=== PATIENT | female | born 1990 | race Caucasian/White ===

== ENCOUNTER 2020-11-15 17:43 | Emergency (ER) | payer BC, SELFPAY ==
[2020-11-15] MEDS ORDERED: NA CHLORIDE 0.9% 1,000 ML ONE (19:02)
[2020-11-15] MEDS ORDERED: FAMOTIDINE 20 MG/2 ML VIAL IV ONE (19:02)
[2020-11-15] MEDS ORDERED: DIPHENHYDRAMINE 50 MG/ML VIAL ONE (19:02)
[2020-11-15] MEDS ORDERED: dexAMETHasone 10 MG/ML VIAL ONE (19:02)
[2020-11-15] MEDS ORDERED: ACETAMINOPHEN 500 MG TAB ONE (19:02)
[2020-11-15 19:08] LABS: Potassium 3.7 mmol/L (3.5-5.1)
[2020-11-15 20:02] LABS: Urine Blood NEGATIVE (NEG); Urine Glucose NEGATIVE (NEG); Urine Protein 2+ (NEG); Urine Specific Gravity 1.025 (1.005-1.030)
--- NOTE | 2020-11-15 20:17 | RAD REPORT ---
EXAM DESCRIPTION: CT - Chest For Pe Angio - 11/15/2020 8:01 pm CLINICAL HISTORY: sob, elevated d-dimer Patient indicates cough and shortness of breath, exposure to COVID positive person, patient COVID iveth t outcome is pending COMPARISON: No comparisons TECHNIQUE: Dynamically enhanced 3 mm thick images of the chest were obtained during administration o f approximately 150mL Isovue 370 IV contrast. Coronal and oblique MIP reconstruction images were gene rated and reviewed. Exam utilizes a protocol to evaluate the pulmonary arterial tree. All CT scans are performed using dose optimization technique as appropriate and may include automated exposure control or mA/KV adjustment according to patient size. FINDINGS: Pulmonary artery contrast density was not optimal but is considered diagnostic. Far periph eral branch assessment is more limited due to respiratory motion. No pulmonary emboli are identifiabl e. The aorta as imaged shows no acute or suspicious finding. No pericardial thickening or effusion. Scattered ground-glass opacities are present in the right upper lobe. Peripheral airspace opacificati on is present in each lower lobe near the base and superior segment of the right lower lobe. No pleur al effusion or pleural thickening. Subcarinal and perihilar lymphadenopathy is present probably reactive. No chest wall masses or abnorm al axillary lymphadenopathy. IMPRESSION: No pulmonary emboli identified. Bilateral peripheral airspace opacification typical for viral infiltrate. In the current clinical env ironment and based on patient exposure history, bilateral COVID-19 pneumonia would be a primary consi deration.
--- NOTE | 2020-11-15 20:21 | EDPHYS ---
Physician Documentation [facility] Name: Naila Salmon Age: 30 yrs Sex: Female : 1990 Arrival Date: 11/15/2020 Time: 17:43 Bed 20 Private MD: ED Physician Emir Baer HPI: 11/15 17:52 This 30 yrs old Female presents to ER via Ambulatory with complaints of jmm Allergic Reaction, Shortness Of Breath. 17:52 The patient presents with rash. Onset: The symptoms/episode began/occurred gradually, jmm today. Associated signs and symptoms: Pertinent positives: shortness of breath. Possible causes: illness. This is a 30 year old female with a history of epilepsy that presents to the ED with complaints of generalized rash, SOB. Patient developed URI symptoms approx 1 week ago. Patient is awaiting COVID 19 results. . 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 - Social history:: Smoking status: Patient denies any tobacco usage or history of. ROS: 17:52 Cardiovascular: Negative for chest pain, palpitations, and edema. jmm 17:52 Constitutional: Positive for body aches, chills, fever. 17:52 Respiratory: Positive for shortness of breath. 17:52 All other systems are negative. Exam: 17:52 Constitutional: This is a well developed, well nourished patient who is awake, alert, jmm and in no acute distress. Head/Face: atraumatic. Eyes: EOMI, no conjunctival erythema appreciated ENT: Moist Mucus Membranes Neck: Trachea midline, Supple Chest/axilla: Normal chest wall appearance and motion. 17:52 Back: Normal ROM Skin: General appearance color normal MS/ Extremity: Moves all extremities, no obvious deformities appreciated, no edema noted to the lower extremities Neuro: Awake and alert, normal gait Psych: Behavior is normal, Mood is normal, Patient is cooperative and pleasant 17:52 Cardiovascular: Rate: tachycardic, Rhythm: regular. Vital Signs: 18:00 BP 138 / 92; Pulse 139; Resp 20 S; Temp 100.4(O); Pulse Ox 99% on R/A; Weight 133.81 iw kg; Height 5 ft. 6 in. (167.64 cm); 18:55 BP 96 / 77; Pulse 110; Resp 20 S; Pulse Ox 97% on R/A; jd3 18:00 Body Mass Index 47.61 (133.81 kg, 167.64 cm) iw MDM: 17:52 Patient medically screened. [facility] 20:19 Data reviewed: nurses notes, EMS record. Counseling: I had a detailed discussion with [facility] the patient and/or guardian regarding: the historical points, exam findings, and any diagnostic results supporting the discharge/admit diagnosis, lab results, radiology results, the need for outpatient follow up, to return to the emergency department if symptoms worsen or persist or if there are any questions or concerns that arise at home. ED course: Patient is alert and non toxic in appearance in the ED. CTA negative. Will treat for covid pneumonia. Patient advised to follow up with pcp and otherwise given strict return precautions. Patient understood and agrees with the plan of care. . 11/15 18:05 Order name: BMP; Complete Time: 19:09 [facility] 11/15 18:05 Order name: D-Dimer; Complete Time: 19:08 [facility] 11/15 19:52 Order name: Urine Dipstick--Ancillary (enter results); Complete Time: 20:11 [facility] 11/15 19:52 Order name: Urine --Ancillary (enter results); Complete Time: 20:11 [facility] 11/15 18:05 Order name: Saline Lock; Complete Time: 18:57 [facility] 11/15 18:05 Order name: Urine Dipstick-Ancillary (obtain specimen); Complete Time: 19:50 [facility] 11/15 19:09 Order name: CT Chest For PE Angio; Complete Time: 20:29 [facility] 11/15 18:05 Order name: Urine Test (obtain specimen); Complete Time: 19:50 [facility] Administered Medications: 18:56 Drug: Tylenol 1000 mg Route: PO; jd3 18:56 Drug: NS 0.9% 1000 ml Route: IV; Rate: 1 bolus; Site: right antecubital; jd3 18:56 Drug: Pepcid 20 mg Route: IVP; Site: right antecubital; jd3 18:56 Drug: Decadron - Dexamethasone 10 mg Route: IVP; Site: right antecubital; jd3 18:57 Drug: Benadryl 25 mg Route: IVP; Site: right antecubital; jd3 Disposition: 11/16 07:02 Co-signature as Attending Physician, Emir Baer MD. rn Disposition: 11/15/20 20:20 Discharged to Home. Impression: Other viral pneumonia. - Condition is Stable. - Discharge Instructions: COVID-19. - Prescriptions for ivermectin 3 mg Oral tablet - take 6 tablet by ORAL route as directed Take one dose now and the second dose on day 3; 12 tablet. Prednisone 20 mg Oral Tablet - take 3 tablet by ORAL route once daily for 5 days; 15 tablet. Albuterol Sulfate 90 mcg/actuation - inhale 1-2 puff by INHALATION route every 4-6 hours; 1 Inhaler. - Medication Reconciliation Form, Thank You Letter, Antibiotic Education, Prescription Opioid Use form. - Follow up: Private Physician; When: 2 - 3 days; Reason: Recheck today's complaints, Continuance of care, Re-evaluation by your physician. Signatures: Dispatcher [employer] EDOK Luis A Graham PA PA jmm Williams, Irene, RN RN iw Nieto, Roman, MD MD rn Davies, Jonathon, RN RN jRody Chen RN RN ll2 Corrections: (The following items were deleted from the chart) 11/15 21:02 18:06 CORONAVIRUS+MR.LAB.BRZ ordered. [facility] 21:31 20:20 11/15/2020 20:20 Discharged to Home. Impression: Other viral pneumonia. Condition ll2 is Stable. Forms are Medication Reconciliation Form, Thank You Letter, Antibiotic Education, Prescription Opioid Use. Follow up: Private Physician; When: 2 - 3 days; Reason: Recheck today's complaints, Continuance of care, Re-evaluation by your physician. racheal
--- NOTE | 2020-11-15 20:21 | ER ---
Nurse's Notes [facility] Name: Naila Salmon Age: 30 yrs Sex: Female : 1990 Arrival Date: 11/15/2020 Time: 17:43 Bed 20 Private MD: Diagnosis: Other viral pneumonia Presentation: 11/15 17:54 Chief complaint: Patient states: woke up this morning with a rash on her arms and legs iw , was recently tested for COVID, has been having fever, SOB, cough since Nov 08, does not have results yet, +exposure. Coronavirus screen: Client presents with at least one sign or symptom that may indicate coronavirus-19. Standard/surgical mask placed on the client. Provider contacted for isolation considerations. Ebola Screen: Patient negative for fever greater than or equal to 101.5 degrees Fahrenheit, and additional compatible Ebola Virus Disease symptoms Patient denies exposure to infectious person. Patient denies travel to an Ebola-affected area in the 21 days before illness onset. No symptoms or risks identified at this time. Initial Sepsis Screen: Does the patient meet any 2 criteria? No. Patient's initial sepsis screen is negative. Does the patient have a suspected source of infection? No. Patient's initial sepsis screen is negative. Risk Assessment: Do you want to hurt yourself or someone else? Patient reports no desire to harm self or others. 17:54 Method Of Arrival: Ambulatory iw 17:54 Acuity: RISSA 3 iw 17:56 Onset of symptoms was November 15, 2020. 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 - Social history:: Smoking status: Patient denies any tobacco usage or history of. Screenin:59 Abuse screen: Denies threats or abuse. Nutritional screening: No deficits noted. jd3 Tuberculosis screening: No symptoms or risk factors identified. Fall Risk Ambulatory Aid- None/Bed Rest/Nurse Assist (0 pts). Gait- Normal/Bed Rest/Wheelchair (0 pts) Mental Status- Oriented to own ability (0 pts). Total Petersen Fall Scale indicates No Risk (0-24 pts). Assessment: 18:16 General: Appears in no apparent distress. uncomfortable, Behavior is calm, cooperative, jd3 appropriate for age. Pain: Complains of pain in chest Quality of pain is described as aching. Neuro: Level of Consciousness is awake, alert, obeys commands, Oriented to person, place, time, situation. Cardiovascular: Denies chest pain, Capillary refill < 3 seconds Patient's skin is warm and dry. Respiratory: Reports shortness of breath at rest cough that is non-productive, persistent Airway is patent Respiratory effort is even, unlabored, Respiratory pattern is regular, symmetrical, Breath sounds are clear bilaterally. GI: No signs and/or symptoms were reported involving the gastrointestinal system. : No signs and/or symptoms were reported regarding the genitourinary system. EENT: No signs and/or symptoms were reported regarding the EENT system. Derm: Skin is intact, Skin is dry, Skin is normal, Skin temperature is warm. Musculoskeletal: Circulation, motion, and sensation intact. Range of motion: intact in all extremities. Vital Signs: 18:00 BP 138 / 92; Pulse 139; Resp 20 S; Temp 100.4(O); Pulse Ox 99% on R/A; Weight 133.81 iw kg; Height 5 ft. 6 in. (167.64 cm); 18:55 BP 96 / 77; Pulse 110; Resp 20 S; Pulse Ox 97% on R/A; jd3 18:00 Body Mass Index 47.61 (133.81 kg, 167.64 cm) iw ED Course: 17:43 Patient arrived in ED. as 17:45 Luis A Graham PA is PHCP. jmm 17:46 Emir Baer MD is Attending Physician. jmm 17:47 Chin Beltran RN is Primary Nurse. jd3 17:56 Triage completed. iw 17:59 Arm band placed on. iw 18:48 Inserted saline lock: 20 gauge in right antecubital area, using aseptic technique. jd3 Blood collected. 19:00 Patient has correct armband on for positive identification. Bed in low position. Call jd3 light in reach. Side rails up X 1. Pulse ox on. NIBP on. 19:52 Urine Microscopic Only Sent. ds4 20:01 CT Chest For PE Angio In Process Unspecified. EDMS Administered Medications: 18:56 Drug: Tylenol 1000 mg Route: PO; jd3 18:56 Drug: NS 0.9% 1000 ml Route: IV; Rate: 1 bolus; Site: right antecubital; jd3 18:56 Drug: Pepcid 20 mg Route: IVP; Site: right antecubital; jd3 18:56 Drug: Decadron - Dexamethasone 10 mg Route: IVP; Site: right antecubital; jd3 18:57 Drug: Benadryl 25 mg Route: IVP; Site: right antecubital; jd3 Outcome: 20:20 Discharge ordered by . racheal 21:31 Patient left the ED. ll2 Signatures: Dispatcher [employer] EDMS Luis A Graham PA PA jmm Martinez, Amelia as Williams, Irene, Pablo Palumbo RN ds4 Chin Beltran RN RN jd3 Linscombe, Lacie, RN RN ll2
[2020-11-15 21:37] VITALS: TEMP 100.4
[2020-11-15 21:38] VITALS: BP 96/77; O2SAT 97
== END 2020-11-15 21:31 | disposition home or self-care (01) ==
LOC: ER 17:43
DX: U07.1 COVID-19 (principal); J12.89 Other viral pneumonia; G40.909 Epilepsy, unspecified, not intractable, without status epilepticus
CPT/HCPCS: 36415; 71275; 80048; 81003; 81025; 85379; 96374; 96375; 99284; J1100; J1200; J7030; Q9967; U0003

== ENCOUNTER 2024-01-27 22:36 | Emergency (ER) | payer SELFPAY ==
[2024-01-27] MEDS ORDERED: HYDROCODONE/APAP 7.5/325 MG TAB ONE (22:57)
--- NOTE | 2024-01-28 00:04 | ER ---
Nurse's Notes [facility] Name: Naila Salmon Age: 33 yrs Sex: Female : 1990 Arrival Date: 01/27/2024 Time: 22:36 Bed 13 Private MD: Diagnosis: Sprain of ankle Presentation: 01/26 22:46 Chief complaint: Patient states: I fell in a whole because i wasn't looking and hurt my bm8 left ankle. Coronavirus screen: Vaccine status: Patient reports receiving the 1st dose of the Covid vaccine. Ebola Screen: Patient negative for fever greater than or equal to 101.5 degrees Fahrenheit, and additional compatible Ebola Virus Disease symptoms Patient denies exposure to infectious person. Patient denies travel to an Ebola-affected area in the 21 days before illness onset. No symptoms or risks identified at this time. Initial Sepsis Screen: Does the patient meet any 2 criteria? No. Patient's initial sepsis screen is negative. Does the patient have a suspected source of infection? No. Patient's initial sepsis screen is negative. Risk Assessment: Do you want to hurt yourself or someone else? Patient reports no desire to harm self or others. Onset of symptoms was January 27, 2024 at 18:00. 22:46 Method Of Arrival: Wheelchair bm8 22:46 Acuity: RISSA 3 bm8 Triage Assessment: 22:48 General: Appears in no apparent distress. uncomfortable, Behavior is calm, cooperative, bm8 appropriate for age. Pain: Complains of pain in left lateral ankle Pain radiates to left leg Pain currently is 4 out of 10 on a pain scale. Quality of pain is described as aching, crampy. EENT: No deficits noted. No signs and/or symptoms were reported regarding the EENT system. Neuro: No deficits noted. Level of Consciousness is awake, alert, obeys commands, Oriented to person, place, time, situation, Appropriate for age. Cardiovascular: No deficits noted. Capillary refill < 3 seconds Patient's skin is warm and dry. Respiratory: Airway is patent Respiratory effort is even, unlabored, Respiratory pattern is regular, symmetrical. Musculoskeletal: Capillary refill < 3 seconds, Range of motion: limited in left ankle Swelling present in left leg. 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 - Infectious Disease History:: Denies. - Social history:: Smoking status: Patient denies any tobacco usage or history of. Screenin:59 [facility] ED Fall Risk Assessment (Adult) History of falling in the last 3 months, km8 including since admission Yes- single mechanical fall (1 pt) Confusion or Disorientation No (0 pts) Intoxicated or Sedated No (0 pts) Impaired Gait Yes (1 pt) Mobility Assist Device Used No (0 pt) Altered Elimination No (0 pt) Score/Fall Risk Level 0 - 2 = Low Risk Oriented to surroundings, Maintained a safe environment, Educated pt \T\ family on fall prevention, incl call for assistance when getting out of bed, Assessed \T\ reinforced patient's understanding of fall precautions. Abuse screen: Denies threats or abuse. Denies injuries from another. Nutritional screening: No deficits noted. Tuberculosis screening: No symptoms or risk factors identified. Assessment: 22:59 General: Appears in no apparent distress. uncomfortable, Behavior is calm, cooperative, km8 appropriate for age. Pain: Complains of pain in left lateral ankle Pain currently is 4 out of 10 on a pain scale. at worst was 10 out of 10 on a pain scale. Neuro: Level of Consciousness is awake, alert, obeys commands, Oriented to person, place, time, situation. Cardiovascular: Denies chest pain, shortness of breath, Patient's skin is warm and dry. Respiratory: Airway is patent Respiratory effort is even, unlabored, Respiratory pattern is regular, symmetrical. GI: No signs and/or symptoms were reported involving the gastrointestinal system. : No signs and/or symptoms were reported regarding the genitourinary system. EENT: No signs and/or symptoms were reported regarding the EENT system. Derm: No signs and/or symptoms reported regarding the dermatologic system. Skin is intact, is healthy with good turgor, Skin is dry, Skin is pink, warm \T\ dry. normal, Skin temperature is warm. Musculoskeletal: Range of motion: limited in left ankle Swelling present in left lateral ankle. 01/27 00:18 Reassessment: Patient appears in no apparent distress at this time. Patient and/or bm8 family updated on plan of care and expected duration. Pain level reassessed. Patient is alert, oriented x 3, equal unlabored respirations, skin warm/dry/pink. Patient states feeling better. Patient states symptoms have improved. Vital Signs: 01/26 22:46 BP 118 / 74; Pulse 112; Resp 20; Temp 98.3; Pulse Ox 97% on R/A; Weight 117.93 kg; bm8 Height 5 ft. 6 in. ; Pain 4/10; 01/27 00:18 BP 121 / 77; Pulse 88; Resp 18; Temp 98.3; Pulse Ox 100% ; Pain 1/10; bm8 01/26 22:46 Body Mass Index 41.96 (117.93 kg, 167.64 cm) bm8 01/26 22:46 Pain Scale: Adult bm8 01/27 00:18 Pain Scale: Adult bm8 Donnie Coma Score: 01/26 22:59 Eye Response: spontaneous(4). Motor Response: obeys commands(6). Verbal Response: km8 oriented(5). Total: 15. ED Course: 22:39 Patient arrived in ED. mr 22:39 Enriqueta Amato PA-C is PHCP. sb4 22:39 Luke Billings MD is Attending Physician. sb4 22:48 Triage completed. bm8 22:48 Arm band placed on right wrist. Patient placed in an exam room, in a wheelchair, on bm8 pulse oximetry. 22:51 Lisa Cervantes, DIPTI is Primary Nurse. km8 22:59 Patient has correct armband on for positive identification. Bed in low position. Call km8 light in reach. Adult w/ patient. Pulse ox on. NIBP on. 23:12 Ankle Left 3 View XRAY In Process Unspecified. EDMS 01/27 00:03 Bismark Diaz MD is Referral Physician. sb4 00:18 Provided Education on: post er care and crutch training. Door closed. Noise minimized. bm8 Ice pack to injury. Verbal reassurance given. elevated injured leg. 00:18 No provider procedures requiring assistance completed. Crutch training done. Ortho shoe bm8 applied to left foot. 00:18 IV discontinued. bm8 Administered Medications: 01/26 22:59 Drug: Hydrocodone-Acetaminophen PO (7.5 mg-325 mg) 1 tabs PO once Route: PO; km8 01/27 00:18 Follow up: Response: No adverse reaction bm8 Medication: 01/26 22:59 VIS not applicable for this client. km8 Outcome: 01/27 00:03 Discharge ordered by . rolando 00:18 Discharged to home ambulatory, with crutches, bm8 00:18 Condition: stable 00:18 Discharge instructions given to patient, family, Instructed on discharge instructions, follow up and referral plans. medication usage, safety practices, crutch walking, Demonstrated understanding of instructions, follow-up care, medications, crutch walking, 00:21 Patient left the ED. bm8 Signatures: Dispatcher [employer] EDNH Honey Bishop, Reg Reg mr Enriqueta Amato, PA-C PA-C sb4 Lisa Cervantes, RN RN km8 Neno Simmons, DIPTI RN bm8
--- NOTE | 2024-01-28 00:04 | EDPHYS ---
Physician Documentation [facility] Name: Naila Salmon Age: 33 yrs Sex: Female : 1990 Arrival Date: 01/27/2024 Time: 22:36 Bed 13 Private MD: ED Physician Luke Billings HPI: 01/26 23:03 This 33 yrs old Female presents to ER via Wheelchair with complaints of Ankle Injury, sb4 Fall Injury. 23:03 The patient presents with an injury, pain, that is acute, swelling, tenderness. The sb4 complaints affect the left ankle. Onset: The symptoms/episode began/occurred just prior to arrival. Context: The problem was sustained outdoors, resulted from a mis-step by the patient, stepped in a hole, The mechanism of injury involved inversion of the affected ankle. The patient can partially bear weight on the affected extremity. must have assistance. The patient has not experienced similar symptoms in the past. The patient has not recently seen a physician. 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 - Infectious Disease History:: Denies. - Social history:: Smoking status: Patient denies any tobacco usage or history of. ROS: 23:03 Constitutional: Negative for fever, chills, and weight loss, sb4 23:03 MS/extremity: Positive for injury or acute deformity, decreased range of motion, pain, swelling, tenderness, 23:03 All other systems are negative, Exam: 23:03 Constitutional: This is a well developed, well nourished patient who is awake, alert, sb4 and in no acute distress. Head/Face: Normocephalic, atraumatic. Eyes: Extra-ocular motions intact. Periorbital areas with no swelling, redness, or edema. ENT: Mucous membranes moist. Skin: Warm, dry with normal turgor. Normal color with no rashes, no lesions, and no evidence of cellulitis. Neuro: Awake and alert, GCS 15, oriented to person, place, time, and situation. Motor strength 5/5 in all extremities. Sensory grossly intact. 23:03 Musculoskeletal/extremity: Circulation is intact in all extremities. Pulses: are normal with no appreciated deficits, Perfusion: the extremity is normally perfused throughout, Sensation intact. Joints: the left ankle displays painful range of motion, swelling, tenderness, Vital Signs: 22:46 BP 118 / 74; Pulse 112; Resp 20; Temp 98.3; Pulse Ox 97% on R/A; Weight 117.93 kg; bm8 Height 5 ft. 6 in. ; Pain 4/10; 01/27 00:18 BP 121 / 77; Pulse 88; Resp 18; Temp 98.3; Pulse Ox 100% ; Pain 1/10; bm8 01/26 22:46 Body Mass Index 41.96 (117.93 kg, 167.64 cm) 8 01/26 22:46 Pain Scale: Adult bm8 01/27 00:18 Pain Scale: Adult bm8 Donnie Coma Score: 01/26 22:59 Eye Response: spontaneous(4). Motor Response: obeys commands(6). Verbal Response: km8 oriented(5). Total: 15. MDM: 22:41 Patient medically screened. sb4 23:03 Differential diagnosis: fracture, sprain. sb4 23:10 Independent interpretation of the following test(s) in the Emergency Department X-Ray: sb4 My interpretation is my interpretation of the ankle xray images are no acute fracture or dislocation. 01/27 00:03 Data reviewed: vital signs, nurses notes, radiologic studies, and as a result, I will sb4 discharge patient. Counseling: I had a detailed discussion with the patient and/or guardian regarding the historical points, exam findings, and any diagnostic results supporting the discharge/admit diagnosis, radiology results, to return to the emergency department if symptoms worsen or persist or if there are any questions or concerns that arise at home. 01/26 22:49 Order name: Ankle Left 3 View XRAY sb4 01/26 22:49 Order name: Ice pack; Complete Time: 22:59 sb4 01/27 00:02 Order name: Walking boot; Complete Time: 00:18 sb4 01/27 00:02 Order name: Manan; Complete Time: 00:18 sb4 Administered Medications: 01/26 22:59 Drug: Hydrocodone-Acetaminophen PO (7.5 mg-325 mg) 1 tabs PO once Route: PO; km8 01/27 00:18 Follow up: Response: No adverse reaction bm8 Disposition Summary: 01/28/24 00:03 Discharge Ordered Notes: Location: Home sb4 Problem: new sb4 Symptoms: have improved sb4 Condition: Stable sb4 Diagnosis - Sprain of ankle sb4 Followup: sb4 - With: Bismark Diaz MD - When: As needed - Reason: Recheck today's complaints, Re-evaluation by your physician Discharge Instructions: - Discharge Summary Sheet sb4 - Ankle Sprain, [id number] sb4 Forms: - Thank You Letter sb4 - Patient Portal Instructions sb4 - Leadership Thank You Letter sb4 Prescriptions: - Ibuprofen 800 mg Oral Tablet - take 1 tablet ORAL route every 8 hours As needed take with food; 30 tablet; sb4 Refills: 0, Product Selection Permitted Signatures: Dispatcher [employer] Enriqueta Verdin, PA-C PA-C sb4 Lisa Cervantes, RN RN km8 Neno Simmons RN RN bm8 Corrections: (The following items were deleted from the chart) 01/26 22:49 22:49 Ankle Left 3 View+RAD.RAD.[email or web address] ordered. MIGUEL RIVERA
[2024-01-28 00:25] VITALS: TEMP 98.3
[2024-01-28 01:11] VITALS: BP 121/77; O2SAT 100
--- NOTE | 2024-01-28 22:06 | RAD REPORT ---
EXAM DESCRIPTION: RAD - Ankle Left 3 View - 01/27/2024 11:10 pm CLINICAL HISTORY: Female, 33 years old, PAIN TECHNIQUE: 3 views COMPARISON: None. FINDINGS: No acute fracture or dislocation. Normal osseous mineralization. Minimal degenerative spur ring of the tibial plafond. 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 No ankle joint effusion. Small posterior and plantar calcaneal enthesophytes. Circumferential soft tissue prominence most pron ounced medially. IMPRESSION: No acute osseous finding of the left ankle. Electronically signed by: Ilia Faulkner MD 01/27/2024 11:50 PM CDT Due to temporary technical issues with the PACS/Fluency reporting system, reports are being signed by the in house radiologists without review as a courtesy to insure prompt reporting. The interpreting radiologist is fully responsible for the content of the report.
== END 2024-01-28 00:21 | disposition home or self-care (01) ==
LOC: ER 22:36
DX: S93.402A Sprain of unspecified ligament of left ankle, initial encounter (principal)
CPT/HCPCS: 99284